=== PATIENT | female | born 1955 | race Caucasian/White ===

== ENCOUNTER 2020-04-18 10:02 | Outpatient (CLI) | payer OTHER, SELFPAY ==
--- NOTE | ~2020-04-18 | MM_ITS ---
EXAMINATION: MM screening [facility] BI w juan HISTORY: Screening TECHNIQUE: Craniocaudal and mediolateral oblique 3-D tomosynthesis images were obtained and synthetic 2-D images were generated. CAD analysis was submitted and interpreted. COMPARISON: Comparison to multiple prior studies sequentially, with oldest reviewed study dated 05/2013. BREAST PARENCHYMAL COMPOSITION: There are scattered areas of fibroglandular density. FINDINGS: There is no evidence of suspicious mass, calcification, or architectural distortion to sugg est malignancy in either breast. There has been no suspicious interval change. IMPRESSION: 1. No mammographic evidence of malignancy. 2. Recommend routine screening mammography in one year. BI-RADS Category 1: Negative Reviewed, dictated and finalized at location A. TH SERVICES MANAGER
== END 2020-04-18 10:03 | disposition home or self-care (01) ==
LOC: ANHIMG 10:05
PROVIDERS: PCP Family Medicine; Visit Provider Obstetrics & Gynecology
DX: Z12.31 Encounter for screening mammogram for malignant neoplasm of breast (principal)
CPT/HCPCS: 77063; 77067

== ENCOUNTER 2021-06-30 08:45 | Outpatient (CLI) | payer MEDICARE, SELFPAY ==
--- NOTE | ~2021-06-30 | MM_ITS ---
EXAMINATION: MM screening [facility] BI w juan HISTORY: Screening TECHNIQUE: Craniocaudal and mediolateral oblique 3-D tomosynthesis images were obtained and synthetic 2-D images were generated. CAD analysis was submitted and interpreted. COMPARISON: Comparison to multiple prior studies sequentially, with oldest reviewed study dated 07/2014. BREAST PARENCHYMAL COMPOSITION: Breast composed of scattered areas of fibroglandular density FINDINGS: There is no evidence of suspicious mass, calcification, or architectural distortion to sugg est malignancy in either breast. There has been no suspicious interval change. IMPRESSION: 1. No mammographic evidence of malignancy. 2. Recommend routine screening mammography in one year. BI-RADS Category 1: Negative Reviewed, dictated and finalized at location A. HEL KNITTING MACHINE OPERATOR
== END 2021-06-30 08:46 | disposition home or self-care (01) ==
PROVIDERS: PCP Family Medicine; Visit Provider Family Medicine
DX: Z12.31 Encounter for screening mammogram for malignant neoplasm of breast (principal)
CPT/HCPCS: 77063; 77067

== ENCOUNTER 2021-08-14 13:48 | Outpatient (CLI) | payer MEDICARE, SELFPAY ==
--- NOTE | ~2021-08-14 | DEXA_ITS ---
Bone Density Report Name: JOHN VELÁSQUEZ Age: 66 Sex: Female Ethnicity: White Date of : 1955 Indication: postmenopausal osteoporosis; Referring Provider: Nakul Ku Study: Bone densitometry was performed. Exam Date: August 14, 2021 Accession number: [id number] Bone Density: Region BMD T-score Z-score Classification AP Spine (L1-L4) 0.812 -2.1 -0.3 Osteopenia Femoral Neck (Left) 0.620 -2.1 -0.5 Osteopenia Total Hip (Left) 0.797 -1.2 0.1 Osteopenia Total Hip Bilateral Avg 0.801 -1.2 0.1 Osteopenia Femoral Neck (Right) 0.644 -1.8 -0.3 Osteopenia Total Hip (Right) 0.804 -1.1 0.1 Osteopenia World Health Organization criteria for BMD impression classify patients as: Normal (T-score at or above -1.0), Osteopenia (T-score between -1.0 and -2.5), or Osteoporosis (T-score at or below -2.5). 10-year Fracture Risk(1): Major Osteoporotic Fracture 11% Hip Fracture 1.7% Reported Risk Factors: [place] (), Neck BMD=0.620, BMI=25.6 (1) FRAX(R) Version 3.08. Fracture probability calculated for an untreated patient. Fracture probability may be lower if the patient has received treatment. Previous Exams: Region Exam Age BMD T-score BMD Change BMD Change Date g/cm2 vs Baseline vs Previous AP Spine(L1-L4) 08/14/2021 66 0.812 -2.1 0.042(5.5%)# 0.067(9.0%)* 12/13/2014 59 0.745 -2.7 -0.025(-3.3%)# -0.025(-3.3%)# 12/01/2012 57 0.770 -2.5 Total Hip(Left) 08/14/2021 66 0.797 -1.2 -0.010(-1.2%)# -0.005(-0.6%)# 12/13/2014 59 0.802 -1.2 -0.005(-0.7%) -0.005(-0.7%) 12/01/2012 57 0.807 -1.1 Total Hip(Right) 08/14/2021 66 0.804 -1.1 0.077(10.6%)# -0.017(-2.1%) 12/13/2014 59 0.822 -1.0 0.094(13.0%)# 0.094(13.0%)# 12/01/2012 57 0.727 -1.8 *Denotes significance at 95% confidence level, LSC for AP Spine = 0.022 g/cm2, LSC for Total Hip = 0.027 g/cm2 Clinical Information Provided by Patient: Has used the following medications: Calcium Patient maximum height was 62 Menopause Age: 53 Drinks caffeinated beverages Onset of menses at age 13 Number of children 2 Impression: The patient has low bone mass, based on the Total Spine T-score. The patient has an estimated ten-year risk of hip fracture of 1.7% and an estimated ten-year risk of major fracture of 11%, based on the WHO FRAX algorithm. No significant bone loss was observed. Discussion: BONE DENSITY IS LOW AT ONE OR MORE SKELETAL SITES.
== END 2021-08-14 13:49 | disposition home or self-care (01) ==
PROVIDERS: PCP Family Medicine; Referring Provider Obstetrics & Gynecology; Visit Provider Family Medicine
DX: Z78.0 Asymptomatic menopausal state (principal); M85.88 Other specified disorders of bone density and structure, other site; M85.852 Other specified disorders of bone density and structure, left thigh; M85.851 Other specified disorders of bone density and structure, right thigh
CPT/HCPCS: 77080

== ENCOUNTER 2022-08-29 09:30 | Outpatient (CLI) | payer MEDICARE, SELFPAY ==
--- NOTE | ~2022-08-29 | MM_ITS ---
EXAMINATION: MM screening [facility] BI w juan HISTORY: Screening mammogram TECHNIQUE: Craniocaudal and mediolateral oblique 3-D tomosynthesis images were obtained and synthetic 2-D images were generated. CAD analysis was submitted and interpreted. COMPARISON: 06/30/2021, 04/18/2020, 03/16/2019 BREAST PARENCHYMAL COMPOSITION: There are scattered areas of fibroglandular density. FINDINGS: No suspicious mass, calcification, or architectural distortion are identified in either louie ast to suggest malignancy. There has been no suspicious interval change. IMPRESSION: 1. No mammographic evidence of malignancy. 2. Recommend routine screening mammography in one year. BI-RADS Category 1: Negative Reviewed, dictated and finalized at location A.
== END 2022-08-29 09:31 | disposition home or self-care (01) ==
PROVIDERS: PCP Family Medicine; Visit Provider Obstetrics & Gynecology
DX: Z12.31 Encounter for screening mammogram for malignant neoplasm of breast (principal)
CPT/HCPCS: 77063; 77067

== ENCOUNTER 2023-01-22 00:24 | Day surgery (SDC) | payer MEDICARE, SELFPAY ==
[2023-01-07 13:50] VITALS: BMI 24.2
--- NOTE | 2023-01-21 09:26 | WPDANESEPPF ---
Anes - Initial Pre Proc Eval Procedure: Operation Date: 01/22/23 08:00 Proposed Procedures p Colonoscopy - Hemant Pierre MD Date/Time: 01/21/23 09:26 Surgeon: Hemant Pierre MD Pre Op Diagnosis: hx colon polyps Patient Data Age: 67 Gender: F Height: 1.57 m Weight: 60 kg Allergies Allergy/AdvReac Type Severity Reaction Status Date / Time No Known Allergies Allergy Verified 01/22/23 06:40 Home Medications Medication Instructions Recorded Confirmed Type calcium carbonate 600 mg-vitamin 1 cap PO DAILY 10/30/21 01/22/23 History D3 12.5 mcg (500 unit) capsule (Calcium 600 with Vitamin D3) multivitamin 1 tablet PO DAILY 10/30/21 01/22/23 History atorvastatin 20 mg tablet 20 mg PO QHS #90 tabs 04/20/22 01/22/23 Rx losartan 100 1 tablet PO DAILY #90 tabs 04/20/22 01/22/23 Rx mg-hydrochlorothiazide 12.5 mg tablet fenofibrate 160 mg tablet 160 mg PO DAILY #90 tabs 10/19/22 01/22/23 Rx Patient hx anesthesia problems: none Family hx anesthesia problems: none Results Review: All pre-operative results and documents have been reviewed as part of the pre-operative evaluation. [facility] Past Medical History Medical History Bladder prolapse Dyslipidemia Essential (primary) hypertension History of colon polyps Osteopenia Pre-diabetes Vitamin D deficiency Family History Family History Father Diabetes mellitus Other Hypertension Social History Social History Smoking status: Never smoker Alcohol intake: current Substance use: never Substance use type: does not use Lack of Transportation: No Lack of Food: Never True Current Housing: I Have Housing Concerned About Future Housing: No Difficulty Paying Gas/Electric Bills: No Difficulty Paying for Meds: No Currently Unemployed: No Education: High School Diploma/GED Difficulty w/ Childcare or Family Care: No Living arrangements: with friend(s) Additional living arrangements comments: Occupation/Education: retired Gender identity (if verbalized by the patient): Female Sexual Orientation (if Verbalized by the Patient): Straight or Heterosexual Anes - Eval Final PreProcedure Day of Procedure 01/21/23 09:26 Patient weight: normal Heart: regular rate and rhythm Lungs: clear to auscultation and normal air movement Airway: Mallampati scale class II Neurological: alert and oriented Last oral intake: >/= 8 hours ASA classification: II Emergent: no Anesthetic plan: proceed Anesthesia type and monitoring: general GIVS and standard monitoring Results Review: All pre-operative results and documents have been reviewed as part of the pre-operative evaluation. Informed Consent: The patient's anesthetic plan and its attendant risks and benefits were discussed with the patient/family/POA. Questions were solicited and answers provided to the satisfaction of the patient/family/POA.
[2023-01-22 06:34] VITALS: BP 157/81; PULSE 93; RESP 18; TEMP 35.8; O2SAT 100; BMI 24.0
[2023-01-22] MEDS: LACTATED RINGERS 1,000 ML 150 ML IV CONT (06:54)
--- NOTE | 2023-01-22 07:33 | PM.HPGS ---
History of Present Illness History of Present Illness Consent: Risks, benefits, and alternatives have been discussed and questions answered. Patient agrees to proceed with procedure. Chief complaint: hx colon polyps Narrative: Zabrina Govea is a 67 year old female Presents for screening colonoscopy. Patient reports having an adenomatous colon polyp in 2006. Follow-up colonoscopy 2013 in 2018 were unremarkable. Patient reports her current weight appetite and bowel movements are normal. She denies abdominal pain. She has had no bleeding. Family history noncontributory. Patient presents today for surveillance screening colonoscopy. Review of Systems Review of Systems: Review of systems noncontributory. [facility] Past Medical History Medical History Bladder prolapse Dyslipidemia Essential (primary) hypertension History of colon polyps Osteopenia Pre-diabetes Vitamin D deficiency Family History Family History Father Diabetes mellitus Other Hypertension Social History Social History Smoking status: Never smoker Alcohol intake: current Substance use: never Substance use type: does not use Lack of Transportation: No Lack of Food: Never True Current Housing: I Have Housing Concerned About Future Housing: No Difficulty Paying Gas/Electric Bills: No Difficulty Paying for Meds: No Currently Unemployed: No Education: High School Diploma/GED Difficulty w/ Childcare or Family Care: No Living arrangements: with friend(s) Additional living arrangements comments: Occupation/Education: retired Gender identity (if verbalized by the patient): Female Sexual Orientation (if Verbalized by the Patient): Straight or Heterosexual Meds Home Medications and Allergies Home Medications Medication Instructions Recorded Confirmed Type calcium carbonate 600 mg-vitamin 1 cap PO DAILY 10/30/21 01/22/23 History D3 12.5 mcg (500 unit) capsule (Calcium 600 with Vitamin D3) multivitamin 1 tablet PO DAILY 10/30/21 01/22/23 History atorvastatin 20 mg tablet 20 mg PO QHS #90 tabs 04/20/22 01/22/23 Rx losartan 100 1 tablet PO DAILY #90 tabs 04/20/22 01/22/23 Rx mg-hydrochlorothiazide 12.5 mg tablet fenofibrate 160 mg tablet 160 mg PO DAILY #90 tabs 10/19/22 01/22/23 Rx Allergies Allergy/AdvReac Type Severity Reaction Status Date / Time No Known Allergies Allergy Verified 01/22/23 06:40 Vital Signs Vital Signs - 24 hr 01/22/23 06:34 Temperature 96.5 F L Pulse Rate 93 Respiratory Rate 18 Blood Pressure 157/81 H Pulse Oximetry 100 Oxygen Delivery Room Air Exam Narrative: Physical exam reveals patient to be alert. Vital signs stable. HEENT exam is unremarkable. Patient is anicteric. Lungs are clear to auscultation and to percussion. Heart is without murmur or extra sounds. Abdomen bowel sounds are present soft nontender with no organomegaly. Digital external rectal exam is normal. Assessment and Plan Assessment and plan (1) History of colon polyps: Code(s): Z86.010 - Personal history of colonic polyps Status: Acute Plan Patient has a distant history of colon polyps in 2006. Plan for surveillance colonoscopy at this time. Further recommendations may be given after endoscopy.
[2023-01-22 08:30] VITALS: BP 105/55; PULSE 70; RESP 18; O2SAT 100
[2023-01-22 08:40] VITALS: BP 122/70; PULSE 68; RESP 23; O2SAT 100
[2023-01-22 08:50] VITALS: BP 135/77; PULSE 63; RESP 17; O2SAT 100
== END 2023-01-22 08:51 | disposition home or self-care (01) ==
PROVIDERS: PCP Family Medicine; Visit Provider Internal Medicine Gastroenterology
PROC: 0DJD8ZZ Inspection of Lower Intestinal Tract, Via Natural or Artificial Opening Endoscopic (ICD-10-PCS; CPT 45378; principal; 2023-01-22 08:00)
DX: Z12.11 Encounter for screening for malignant neoplasm of colon (principal); K57.30 Diverticulosis of large intestine without perforation or abscess without bleeding; Z86.010 Personal history of colon polyps; I10 Essential (primary) hypertension; E78.5 Hyperlipidemia, unspecified; E55.9 Vitamin D deficiency, unspecified
CPT/HCPCS: G0105; J2704; J7120

== ENCOUNTER 2024-01-07 09:57 | Outpatient (CLI) | payer MEDICARE, SELFPAY ==
--- NOTE | ~2024-01-07 | MM_ITS ---
EXAMINATION: MM screening [facility] BI w juan HISTORY: Screening TECHNIQUE: Craniocaudal and mediolateral oblique 3-D tomosynthesis images were obtained and synthetic 2-D images were generated. CAD analysis was submitted and interpreted. COMPARISON: Comparison to multiple prior studies sequentially, with oldest reviewed study dated 02/11. BREAST PARENCHYMAL COMPOSITION: Not dense: There are scattered areas of fibroglandular density. FINDINGS: There is no evidence of suspicious mass, calcification, or architectural distortion to sugg est malignancy in either breast. There has been no suspicious interval change. IMPRESSION: 1. No mammographic evidence of malignancy. 2. Recommend routine screening mammography in one year. BI-RADS Category 1: Negative Reviewed, dictated and finalized at location B.
== END 2024-01-07 09:58 | disposition home or self-care (01) ==
PROVIDERS: PCP Family Medicine
DX: Z12.31 Encounter for screening mammogram for malignant neoplasm of breast (principal)
CPT/HCPCS: 77063; 77067

== ENCOUNTER 2024-10-30 09:15 | Outpatient (CLI) | payer MEDICARE, SELFPAY ==
--- NOTE | ~2024-10-30 | DEXA_ITS ---
Bone Density Report Name: JOHN VELÁSQUEZ Age: 69 Sex: Female Ethnicity: White Date of : 1955 Indication: osteopenia; height loss; Referring Provider: FIDEL HAYWARD Study: Bone densitometry was performed. Exam Date: October 30, 2024 Accession number: [id number] Bone Density: Region BMD T-score Z-score Classification AP Spine(L1-L4) 0.779 -2.4 -0.4 Osteopenia Femoral Neck (Left) 0.594 -2.3 -0.6 Osteopenia Total Hip (Left) 0.802 -1.1 0.3 Osteopenia Femoral Neck (Right) 0.604 -2.2 -0.5 Osteopenia Total Hip (Right) 0.812 -1.1 0.4 Osteopenia Total Hip Mean 0.807 -1.1 0.4 Osteopenia World Health Organization criteria for BMD impression classify patients as: Normal (T-score at or above -1.0), Osteopenia (T-score between -1.0 and -2.5), or Osteoporosis (T-score at or below -2.5). 10-year Fracture Risk(1): Major Osteoporotic Fracture 13% Hip Fracture 2.6% Reported Risk Factors: [place] (), Neck BMD=0.594, BMI=25.7 (1) FRAX(R) Version 3.08. Fracture probability calculated for an untreated patient. Fracture probability may be lower if the patient has received treatment. Previous Exams: Region Exam Age BMD T-score BMD Change BMD Change Date g/cm2 vs Baseline vs Previous AP Spine (L1-L4) 10/30/2024 69 0.779 -2.4 0.034 (4.6%)* -0.033 (-4.1%) 08/14/2021 66 0.812 -2.1 0.067 (9.0%)* 0.067 (9.0%)* 12/13/2014 59 0.745 -2.7 Total Hip(Left) 10/30/2024 69 0.802 -1.1 0.001 (0.1%)# 0.005 (0.7%) 08/14/2021 66 0.797 -1.2 -0.005 (-0.6%) -0.005 (-0.6%) 12/13/2014 59 0.802 -1.2 Total Hip(Right) 10/30/2024 69 0.812 -1.1 -0.009 (-1.1%) 0.008 (1.0%) 08/14/2021 66 0.804 -1.1 -0.017 (-2.1%) -0.017 (-2.1%) 12/13/2014 59 0.822 -1.0 *Denotes significance at 95% confidence level, LSC for AP Spine = 0.022 g/cm2, LSC for Total Hip = 0.027 g/cm2 # Denotes dissimilar scan types or analysis methods Clinical Information Provided by Patient: Has used the following medications: Vitamin D, Calcium Patient maximum height was 62 Menopause Age: 53 Drinks caffeinated beverages Onset of menses at age 13 Number of children 2 Impression: The patient has low bone mass, based on the Total Spine T-score. The patient has an estimated ten-year risk of hip fracture of 2.6% and an estimated ten-year risk of major fracture of 13%, based on the WHO FRAX algorithm. The BMD for the AP Spine (L1-L4) decreased, changing by -4.1% since the last DXA exam. Discussion: BONE DENSITY IS LOW AT ONE OR MORE SKELETAL SITES. This patient's lowest T-score is low at one or more skeletal sites. It meets the World Health Organization's (WHO) criteria for ?low bone mass? (T-score between -1.0 and -2.5). The patient's 10-year risk of fracture as calculated by FRAX is less than the threshold where pharmacological therapy is recommended by the National Osteoporosis Foundation (NOF). However, all treatment decisions require clinical judgment and consideration of individual patient factors, including patient preferences, comorbidities, previous drug use, risk factors not captured in the FRAX model (e.g., frailty, falls, vitamin D deficiency, increased bone turnover, interval significant decline in bone density) and possible under or overestimation of fracture risk by FRAX. The patient should follow a healthful lifestyle (good nutrition with adequate calcium and vitamin D, and appropriate weight-bearing exercise). Follow-Up: Consider repeating this study in 2 years to reassess this patient's status, or sooner if there is some new clinical indication. Reported by: KRYSTINA on 10/30/2024 9:48:00 AM. Reviewed, dictated and finalized at location A.
== END 2024-10-30 09:16 | disposition home or self-care (01) ==
LOC: ANHIMG 09:18
PROVIDERS: PCP Family Medicine; Visit Provider Family Medicine
DX: Z78.0 Asymptomatic menopausal state (principal); M85.89 Other specified disorders of bone density and structure, multiple sites
CPT/HCPCS: 77080

== ENCOUNTER 2025-01-19 07:27 | Outpatient (CLI) | payer MEDICARE, SELFPAY ==
--- NOTE | ~2025-01-19 | MM_ITS ---
EXAMINATION: MM screening [facility] BI w juan HISTORY: Screening TECHNIQUE: Craniocaudal and mediolateral oblique 3-D tomosynthesis images were obtained and synthetic 2-D images were generated. CAD analysis was submitted and interpreted. COMPARISON: Comparison to multiple prior studies sequentially, with oldest reviewed study dated , 03/16/2019 BREAST PARENCHYMAL COMPOSITION: There are scattered areas of fibroglandular density. FINDINGS: There is no evidence of suspicious mass, calcification, or architectural distortion to suggest malignancy in either breast. IMPRESSION: 1. No mammographic evidence of malignancy. 2. Recommend routine screening mammography in one year. BI-RADS Category 1: Negative Reviewed, dictated and finalized at location B.
--- OUTSIDE RECORDS SUMMARY | 2025-01-19 07:48 | XMS_ITS | Clinical Summary ---
Author Organization [facility] [place] [address] Address [address] [place] [id number] Care Team Providers Care Hydroelectric Plant Structural Engineer Name Role Phone Nina Ku MD Primary Care Provider Allergies No known active allergies Medications atenoloL (TENORMIN) 25 mg tablet 07/23/2023 Active atorvastatin (LIPITOR) 20 mg tablet 07/23/2023 Active fenofibrate (TRIGLIDE) 160 mg tablet 07/23/2023 Active losartan-hydroC HLOROthiazide (HYZAAR) 100-12.5 mg per tablet 07/23/2023 Active estradioL (ESTRACE) 0.01 % (0.1 mg/gram) vaginal cream Apply 1 inch ( 1-2 grams) nightly to vagina Saturday// Saturday 42.5 g 5 02/17/2024 Active Active Problems Problem Noted Date Diagnosed Date Well woman exam 02/17/2024 Overview (02/17/2024): All of her Pap smears are within normal limits Labs with PCP Man is up-to-date Colonoscopy was in 2022 told to repeat in 10 years Bone mineral density she is unsure when she last had this Assessment & Plan (12/28/2024 1:17 PM CDT): Will do when she returns in 6 months. Assessment & Plan (06/22/2024 1:15 PM FAA CERTIFIED POWERPLANT MECHANIC): Due in feb 2024 Assessment & Plan (02/17/2024 11:48 AM CDT): Complete exam was done Vulvar lesion 02/17/2024 Assessment & Plan (12/28/2024 1:17 PM CDT): Stable To continue estrogen weekly Assessment & Plan (06/22/2024 1:22 PM FAA CERTIFIED POWERPLANT MECHANIC): stable Assessment & Plan (02/17/2024 11:47 AM CDT): This may be early lichen sclerosus. She is asymptomatic Will follow Cystocele, midline 07/24/2023 Assessment & Plan (12/28/2024 1:16 PM CDT): Doing well with the pessary Will continue on Assessment & Plan (06/22/2024 1:15 PM FAA CERTIFIED POWERPLANT MECHANIC): The pessary was removed, cleaned and replaced. To continue on as needed. Assessment & Plan (02/17/2024 11:47 AM CDT): The pessary was removed, cleaned and replaced. Doing well To continue on. Assessment & Plan (08/07/2023 1:43 PM CDT): Patient is doing well with her size 4 ring pessary. I did encourage a daily stool softener as well as increasing her water to help keep her stool soft to hopefully prevent any continued issues with rectal pressure. The plan will be to see her back in 3 months for a recheck. She will continue to use her estradiol vaginal cream twice a week as needed. She will notify my office with any further questions or concerns. Assessment & Plan (07/24/2023 11:47 AM CDT): Patient is a successfully fitted with a size 4 ring pessary with support. I would like to see her back in 2 weeks to reassess how she is doing with the pessary. She can continue with her vaginal estrogen twice a week as needed. If she would develop any vaginal bleeding, issues with urination or defecation, she will notify my office. The patient is agreeable to the plan and will call with any further questions or concerns. Encounters Date Type Department Care Team Description 12/28/2024 1:00 PM CDT Office Visit [facility] at [address] [phone] Rosa M Grimes MD Cystocele, midline (Primary Dx); Vulvar lesion; Well woman exam from Last 3 Months Medical History Medical History Date Comments Hypertension Hyperlipidemia Female bladder prolapse Family History Medical History Relation Name Comments Hyperlipidemia Father Hypertension Father Breast cancer Father's Sister 1/2 this was a 1/2 sister Hyperlipidemia Mother Hypertension Mother bladder prolapse Mother Breast cancer Other cousin, father side Cancer Neg Hx no colon or public area attendant cancer 02/17/24 Relation Name Status Comments Father Father's Sister 1/2 Alive Mother Other Social History Tobacco Use Types Packs/Day Years Used Date Smoking Tobacco: Never Smokeless Tobacco: Never Tobacco Cessation:Counseling Given: Not Answered Humiliation, Afraid, Rape, and Kick questionnair e Answer Date Recorded Within the last year, have y ou been afraid of your partner or ex-partner? No 02/17/2024 Within the last year, have y ou been humiliated or emotionally abused in other ways by your partner or ex-partner? No Within the last year, have y ou been kicked, hit, slapped, or otherwise physically hurt by your partner or ex-partner? No 02/17/2024 Within the last year, have y ou been raped or forced to have any kind of sexual activity by your partner or ex-partner? No 02/17/2024 AUDIT-C Answer Date Recorded Q1: How often do you have a drink containing alcohol? Never 02/17/2024 Q2: How many drinks containi ng alcohol do you have on a typical day when you are drinking? Patient does not drink Q3: How often do you have si x or more drinks on one occasion? Never 02/17/2024 PHQ-2 Answer Date Recorded PHQ-2 Total Score 0 06/22/2024 Comments No Sex and Gender Information Value Date Recorded Sex Assigned at Not on file Legal Sex Female 7:21 AM FAA CERTIFIED POWERPLANT MECHANIC Gender Identity Not on file Sexual Orientation Not on file Obstetrics History Para Term AB IAB SAB Ectopic Multiple Livin g Live Births 2 2 2 2 2 Date Outcome GA Total Labor Labor/2nd/3rd Weight Sex Type Anes PTL Anna A1 A5 Name Clin 1973 Term 3.856 kg (8 lb 8 oz) M Vaginal Living Complications:None 1982 Term 2.778 kg (6 lb 2 oz) F Vaginal None Living Complications:None Last Filed Vital Signs Vital Sign Reading Time Taken Comments Blood Pressure 144/72 12/28/2024 12:59 PM CDT Pulse - - Temperature - - Respiratory Rate - - Oxygen Saturation - - Inhaled Oxygen Concentration - - Weight 60.8 kg (134 lb) 12/28/2024 12:59 PM CDT Height 157.5 cm (5' 2) 12/28/2024 12:59 PM CDT Body Mass Index 24.51 12/28/2024 12:59 PM CDT Plan of Treatment Health Maintenance Due Date Last Done Comments Colon Cancer Screening-Colonoscopy 1955 Fall Risk Assessment 1955 Hepatitis C Screening 1955 Osteoporosis Screening-Bone Density Scan 1955 DTaP/Tdap/Td Vaccine (1 - Tdap) 1967 Hepatitis B Screening 1974 Well Visit 65+ 2021 Covid-19 Vaccine (6 2023-2 5 season) 2024 02/16/2022, 11/11/2021, 04/12/2021, Additional history exists Breast Cancer Screening-Mammogram 01/06/2025 024 Influenza Vaccine (#1) 2025 , 02/16/2022, 02/17/2021, Additional history exists Depression Screening 06/22/2025 06/22/2024, 02/17/20 24 Zoster Vaccine Completed 10/19/2021, 06/19/2021 Pneumococcal vaccine 65+ Completed 06/30/2022, 05/14 Procedures Procedure Name Priority Date/Time Associated Diagnosis Comments SCREENING MAMMOGRAM BILATERAL W DEMI Schedule Routine, Read Routine (OP Routine) 01/07/2024 1:26 PM CDT from Last 3 Months or Most Recently Relevant to Health Maintenance Results * Screening Mammogram Bilateral W Demi (01/07/2024 1:26 PM CDT) Anatomical Region Laterality Modality Breast Bilateral Mammography us Historical Provider MD [facility] PROCEDURES Marybeth l Result from Last 3 Months or Most Recently Relevant to Health Maintenance Insurance [employer] MEDICARE Care Teams Hydroelectric Plant Structural Engineer Relationship Specialty Start Date End Date Nina Ku MD [address] [place] [address] DR MEJIA [address] [place] [id number] PCP - General Family Practice 06/25/23
== END 2025-01-19 07:28 | disposition home or self-care (01) ==
PROVIDERS: PCP Family Medicine; Visit Provider Obstetrics & Gynecology
DX: Z12.31 Encounter for screening mammogram for malignant neoplasm of breast (principal)
CPT/HCPCS: 77063; 77067